=== PATIENT | male | born 1990 | race Caucasian/White ===

== ENCOUNTER → 2016-12-18 | Outpatient (CLI) | payer OTHER ==
--- NOTE | 2016-12-20 07:28 | XR ---
EXAMINATION TYPE: XR chest 2V DATE OF EXAM: 12/18/2016 11:57 AM COMPARISON: Thoracic spine x-ray from 2015 HISTORY: Burning right-sided chest pain. TECHNIQUE: Frontal and lateral views of the chest are obtained. FINDINGS: Some elevation and eventration of the anterior aspect right hemidiaphragm is present. There is no focal air space opacity, pleural effusion, or pneumothorax seen. The cardiac silhouette size is within normal limits. Slight underlying levoconvex scoliotic curvature in the upper thoracic spine is redemonstrated. IMPRESSION: No acute cardiopulmonary process.
== END | disposition home or self-care (01) ==
LOC: RADXRYALE 11:44
PROVIDERS: ATTEND Family Medicine
DX: R07.1 Chest pain on breathing (principal)
CPT/HCPCS: 71020

== ENCOUNTER → 2017-03-13 | Outpatient (CLI) | payer OTHER ==
--- NOTE | 2017-03-13 08:04 | US ---
EXAMINATION TYPE: US abdomen complete DATE OF EXAM: 03/13/2017 COMPARISON: NONE CLINICAL HISTORY: R10.9 Abdominal pain. Weight gain, Lupus, Nausea/vomiting. EXAM MEASUREMENTS: Liver Length: 17.0 cm Gallbladder Wall: 0.2 cm CBD: 0.3 cm Spleen: 10.5 cm Right Kidney: 12.5 x 5.9 x 4.9 cm Left Kidney: 12.5 x 5.7 x 5.4 cm Pancreas: wnl, partially obscured by bowel gas. Liver: Large, hyperechoic, with areas of focal sparing near GB Gallbladder: wnl Evidence for sonographic Borja's sign: no CBD: wnl Spleen: wnl, upper limits for size Right Kidney: Small cyst mid/upper pole = 0.8 x 0.8 x 0.7 cm Left Kidney: wnl Upper IVC: wnl Abd Aorta: wnl The visualized liver is heterogeneously hyperechoic. Evaluation for focal masses suboptimal due to th e heterogeneity. The intrahepatic portion of the IVC and visualized abdominal aorta are within huseyin l limits. There is no evidence of cholelithiasis. Common bile duct is unremarkable. The visualized portions of the pancreas are slightly heterogeneous. The spleen is unremarkable. Kidneys are symme tric and free of hydronephrosis. No renal lesions are seen. IMPRESSION: Heterogeneous hyperechoic appearance of liver favors diffuse fatty infiltration.
== END | disposition home or self-care (01) ==
LOC: RADUSWWP 07:01
PROVIDERS: ATTEND Family Medicine
DX: R10.9 Unspecified abdominal pain (principal)
CPT/HCPCS: 76700

== ENCOUNTER → 2019-05-12 | Outpatient (CLI) | payer OTHER ==
--- NOTE | 2019-05-12 10:26 | XR ---
EXAMINATION TYPE: XR wrist complete RT DATE OF EXAM: 05/12/2019 CLINICAL HISTORY: Scaphoid pain for one month TECHNIQUE: Frontal, lateral and oblique images of the right wrist are obtained. Scaphoid view was al so obtained. COMPARISON: None FINDINGS: There is no acute fracture/dislocation evident in the right wrist. The joint spaces in th e right wrist appear within normal limits. The overlying soft tissue appears unremarkable. IMPRESSION: There is no acute fracture or dislocation in the right wrist. MRI could evaluate for oss eous contusion, tendinous injury or ligamentous injury if there is further clinical concern and mazin nued snuffbox pain.
== END | disposition home or self-care (01) ==
LOC: RADXRYALE 09:38
PROVIDERS: ATTEND Family Medicine
DX: M25.531 Pain in right wrist (principal); M65.4 Radial styloid tenosynovitis [de Quervain]

== ENCOUNTER → 2019-11-02 | Outpatient (CLI) | payer OTHER ==
--- NOTE | 2019-11-02 09:55 | MR ---
EXAMINATION TYPE: MR cervical spine wo con DATE OF EXAM: 11/02/2019 COMPARISON: Prior exam cervical spine MR 07/23/2016 HISTORY: Cervical stenosis TECHNIQUE: Multiplanar, multisequence images of the cervical spine were acquired. C2-C3: No evidence for degenerative disc disease. No disc bulge/herniation or protrusion. No Canal stenosis. Uncovertebral joint hypertrophy encroaches somewhat on the right neural foramen similar to prior exam. C3-C4: No evidence for degenerative disc disease. No disc bulge/herniation or protrusion. No Canal stenosis. Uncovertebral joint hypertrophy encroaches somewhat on the right neural foramen similar to prior exam.. C4-C5: Posterior extension endplate disc complex causes mild anterior mass effect on the thecal sac. Bilateral foraminal encroachment is present as on prior exam. C5-C6: No evidence for degenerative disc disease. No disc bulge/herniation or protrusion. No Canal stenosis. Some mild foraminal encroachment due to uncovertebral joint hypertrophy noted.. C6-C7: No evidence for degenerative disc disease. No disc bulge/herniation or protrusion. No Canal stenosis. Foramina are patent bilaterally. C7-T1: No evidence for degenerative disc disease. No disc bulge/herniation or protrusion. No Canal stenosis. Foramina are patent bilaterally. Cervical segments are intact. There is normal alignment. Cervical spinal cord is of normal signal. Craniovertebral junction relationships are within normal limits. Spinal curvature is again noted. L oss of disc height and signal is greatest at C4-5, C5-6 but also present at C3-4, C6-7. There is asso ciated spondylosis as on prior exam. IMPRESSION: Mild degenerative disc disease is similar to prior exam. There is a spinal curvature present.
--- NOTE | 2019-11-02 15:35 | MR ---
EXAMINATION TYPE: MR lumbar spine wo/w con DATE OF EXAM: 11/02/2019 COMPARISON: Prior lumbar MRI 07/23/2016 HISTORY: Low back pain TECHNIQUE: Multiplanar, multisequence images of the lumbar spine were acquired utilizing 11.5 mL intravenous Misha avist gadolinium contrast. L1-L2: Normal disc appearance without desiccation. No herniation, protrusion or disc bulging. No ca nal stenosis is present. Foramina are patent bilaterally. L2-L3: Normal disc appearance without desiccation. No herniation, protrusion or disc bulging. No ca nal stenosis is present. Foramina are patent bilaterally. L3-L4: Posterior disc bulge causes anterior mass effect on the thecal sac. Increased signal at the po sterior aspect of the disc consistent with annular tear. Circumferential extension endplate disc comp genna encroaches somewhat on the neural foramina greater on the right. L4-L5: Listhesis contributes to cause bilateral foraminal encroachment greater on the left. There are laminectomy changes present. L5-S1: Normal disc appearance without desiccation. No herniation, protrusion or disc bulging. No ca nal stenosis is present. Foramina are patent bilaterally. Lumbar segments are stable. No paraspinal masses are identified. Conus medullaris has a normal appe arance. Posterior fusion is present at L4-5 with persistent listhesis L4-5 grade 1. Prior tract prese nt bilaterally at transitional segment previously denoted as S1, S1 previously placed screws again no seymour and have been removed. 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 Loss of disc height signal ag ain noted L3-4, L4-5 and L5-S1, there is endplate marrow signal changes present L5-S1. T2 bright foci within the kidneys likely represent cysts. Dorsal enhancing soft tissue at the L4 level is again see n and is likely postoperative granulation tissue No additional abnormal enhancement following contras t administration. IMPRESSION: Postop changes as described are similar to prior exam. Transitional lumbosacral spine segment, correl ate with plain film prior to any intervention.
== END | disposition home or self-care (01) ==
LOC: RADMRIMAIN 08:17
PROVIDERS: ATTEND Family Medicine
DX: M51.36 Other intervertebral disc degeneration, lumbar region (principal)
CPT/HCPCS: 72141; 72158; A9585

== ENCOUNTER → 2019-11-06 | Outpatient (CLI) | payer OTHER ==
--- NOTE | 2019-11-06 09:22 | MR ---
EXAMINATION TYPE: MR thoracic spine wo con DATE OF EXAM: 11/06/2019 COMPARISON: None HISTORY: Back pain CONTRAST: Performed utilizing 0 mL intravenous Gadavist gadolinium contrast. TECHNIQUE: Multiplanar, multiecho imaging on a 3.0 Sridevi magnet is performed through the thoracic spi ne. Spinal cord maintains normal signal through its visualized course. Vertebral body alignment is normal. Some mild scoliosis in the upper thoracic lower cervical spine ma y be present, this could be positional. Vertebral body heights are preserved. Disc heights are preserved. Disc hydration levels are preserved. No disc herniations are evident. No spinal canal stenosis is evident. No syrinx is identified. IMPRESSIONS: 1. Mild upper thoracic scoliosis which could be positional. 2. MRI Thoracic spine is otherwise unremarkable.
== END | disposition home or self-care (01) ==
LOC: RADMRIMAIN 08:26
PROVIDERS: ATTEND Family Medicine
DX: M51.34 Other intervertebral disc degeneration, thoracic region (principal)
CPT/HCPCS: 72146

== ENCOUNTER → 2019-11-17 | Outpatient (CLI) | payer OTHER ==
[2019-11-17 11:49] VITALS: BP 122/86; PULSE 88; RESP 14
--- NOTE | 2019-11-17 12:34 | P.CONS ---
History of Present Illness - Reason for Consult Consult date: 11/17/19 - Chief Complaint Neck and lower back pain - History of Present Illness This is a 29-year-old gentleman with chronic history of neck and lower back pain. The patient had 2 surgeries on the lumbar spine with lumbar fusion one in 2004 and the second one in 2012. He describes his pain as sharp and shooting it is mostly in his lower back and goes to the right buttock area but does not go to the lower extremities. He denies any numbness or tingling in the lower extremities however he does feel numbness and tingling in both arms with neck pain which radiates down to the shoulders only. The patient has been taking Percocet and morphine for his pain but this has not been controlling his pain well. He denies any bowel or bladder dysfunction or any weight loss recently. He also denies any fever or chills recently. The pain does wake the patient up at night. The patient is unemployed at this point and he we'll apply for disability because of his chronic pain problem. Past Medical History Past Medical History: Hypertension Additional Past Medical History / Comment(s): chronic back and neck pain, hx of back fx at age 11 or 12, states being tested for lupus, hx of low testosterone, History of Any Multi-Drug Resistant Organisms: None Reported Past Surgical History: Back Surgery Additional Past Surgical History / Comment(s): fusion 2004 and 2012, rods and screws, previous epidurals and pain clinic procedures Past Anesthesia/Blood Transfusion Reactions: No Reported Reaction Smoking Status: Never smoker - Past Family History Mother Family Medical History: No Reported History Medications and Allergies Home Medications Medication Instructions Recorded Confirmed Type Atenolol/Chlorthalidone 1 each PO DAILY 11/12/19 11/12/19 History [Atenolol-Chlorthalidone 100-25] Baclofen [Lioresal] 20 mg PO TID 11/12/19 11/12/19 History DULoxetine HCL [Cymbalta] 60 mg PO DAILY 11/12/19 11/12/19 History Ergocalciferol [Vitamin D2 50,000 unit PO Q30D 11/12/19 11/12/19 History (DRISDOL)] Gabapentin [Neurontin] 800 mg PO QID 11/12/19 11/17/19 History Morphine Sulfate [Morphine Sulfate 30 mg PO Q12H 11/12/19 11/17/19 History ER] Testosterone 200 mg INJ FR 11/12/19 History oxyCODONE-APAP 10-325MG [Percocet 1 tab PO TID 11/12/19 11/17/19 History 10-325 mg] Allergies Allergy/AdvReac Type Severity Reaction Status Date / Time No Known Allergies Allergy Verified 11/12/19 15:06 Physical Exam Vitals: Vital Signs Pulse Resp BP 11/17/19 11:47 88 14 122/86 - Constitutional General appearance: average body habitus - EENT Eyes: PERRLA - Respiratory Respiratory: bilateral: CTA - Cardiovascular Rhythm: regular - Neurologic Neuro exam of the upper extremities showed normal and symmetrical deep tendon reflexes and normal and symmetrical muscle strength. Neuro exam of the lower extremities showed normal and symmetrical muscle strength, decreased knee reflexes bilaterally, absent ankle reflexes bilaterally. Straight leg raising test negative bilaterally. Neurologic: CNII-XII intact - Musculoskeletal Positive tenderness in the lumbar paravertebral musculature bilaterally. Mild tenderness around the sacroiliac joints bilaterally. Decreased range of motion of the lumbar spine. Normal but painful range of motion of the cervical spine. Postoperative tenderness in the cervical paravertebral musculature and in the trapezius muscles bilaterally. Results Results: Lumbar spine MRI showed annular tear and disc bulging at the L3-L4 level due to associated with posterior fusion at the L4 5 with persistent listhesis at L4 5 level and grade 1 and a transitional segment at L5-S1 level. The cervical spine MRI showed mild degenerative disc disease with loss of disc height especially at Assessment and Plan Plan: This is a 29-year-old gentleman with history of chronic neck and lower back pain with the following diagnoses: Lumbar postlaminectomy pain syndrome Lumbar DDD Lumbar spondylosis without myelopathy Cervical DDD Cervical spondylosis without myelopathy We'll plan to do a diagnostic lumbar medial branch block above the fusion level. We will proceed with RFA in the future of this block helps the patient's pain. The patient had cervical epidural steroid injection previously which gave him 3 months of pain relief and if his neck pain continues to be a problem we can plan on doing cervical epidural steroid injection in the future. The patient denies taking any anticoagulants. And he is not diabetic. I thank you for the referral
== END | disposition home or self-care (01) ==
LOC: PNWHC3 11:08
PROVIDERS: ATTEND Anesthesiology
DX: G89.29 Other chronic pain (principal); M50.30 Other cervical disc degeneration, unspecified cervical region; M47.812 Spondylosis without myelopathy or radiculopathy, cervical region; M47.816 Spondylosis without myelopathy or radiculopathy, lumbar region; M96.1 Postlaminectomy syndrome, not elsewhere classified; Z79.891 Long term (current) use of opiate analgesic; Z79.899 Other long term (current) drug therapy
CPT/HCPCS: 99211

== ENCOUNTER 2019-12-17 09:16 | Day surgery (SDC) | payer OTHER ==
[2019-12-16 12:31] VITALS: BMI 30.4
[~2019-12-17 09:16] MED LIST: LACTATED RINGERS 1,000 ML IV SCH
[2019-12-17 09:39] VITALS: RESP 16; TEMP 98.8
[2019-12-17] MEDS ORDERED: LIDOCAINE 1% (10MG/ML) FOR IV START INTRADERMA ONE (09:44)
[2019-12-17] MEDS ORDERED: methylPREDNISolone ACETATE 40 MG/ML 1 ML VIAL ONE (09:58)
[2019-12-17] MEDS ORDERED: fentaNYL (PF) 50 MCG/ML 2 ML AMP ONE (09:58)
[2019-12-17] MEDS ORDERED: ROPIVACAINE 5MG/ML 20ML VIAL ONE (09:58)
[2019-12-17] MEDS ORDERED: MIDAZOLAM 2 MG/2 ML VIAL ONE (09:58)
--- NOTE | 2019-12-17 10:23 | P.PCN ---
Date of Procedure: 12/17/19 Procedure(s) Performed: PREOPERATIVE DIAGNOSIS : 1- Lumbar spondylosis with Facet Arthropathy without myelopathy . POSTOPERATIVE DIAGNOSIS: 1- Lumbar spondylosis with Facet Arthropathy without myelopathy . PROCEDURE: Diagnostic bilateral L1 , L2 ,L3 , medial branch block under fluoroscopy guidance(fluoroscopy images available in the radiology Department ) ( To target the facet joint between L2-3 , and L3-4 ) ANESTHESIA:, moderate sedation with intravenous Versed 2 mg and Fentanyl 50 mcg. EBL: Minimal COMPLICATION: None. IV FLUIDS: 100 mL of normal saline. PROCEDURE INDICATION: Chronic low back pain secondary to Facet arthropathy unresponsive to conservative treatment. PROCEDURE DESCRIPTION: the patient was seen and identified in the preop holding area , risks and benefits and possible complications of the procedure and alternative were discussed with the patient, and the patient agreed to proceed with the procedure and signed the consent IV was started and vital signs monitored during the procedure and fluoroscopy was used to maximize the benefit and accuracy of the needle placement, and sedation was given to decrease patient anxiety, patient was taken to the procedure room and placed in prone position vital signs monitored in the back prepped with chlorhexidine X3 then under strict sterile technique using a right oblique fluoroscopy ,the junction of the transverse process and the superior articulating process of the right L1 , L2 , L3 , vertebra which corresponding to the fluoroscopy image of the eye of the Emmanuel dog on the block side for the medial branches and subsequently , after local infiltration of skin and subcu tissuies with Ropivacaine 0.5 % , one mL at each level ,then 22-gauge Quincke-type needles , 3 needle was used , each one of them placed at the junction of the base of the transverse process and the superior articular process at the appropriate level, and the needle was advanced until the periosteum contacted, needle placement confirmed with AP oblique and lateral view and after appropriate needle placement confirmed, and after negative aspiration for heme and CSF and there was no paresthesia 1-1/2 mL of Ropivacaine 0.5% mixed with 20 mg Depo-Medrol , then half mL injected at each level after negative aspiration the needle subsequently removed and the same procedure repeated for the left side at left side at L1 ,L2 ,L3 , levels. At the end of the procedure and the needles removed and a bandage applied after the skin was cleaned the cleaning solution patient taken to recovery room in stable condition and monitors in the recovery room for 20-30 minutes and discharged home in stable condition after discharge criteria met and patient will follow up with the pain clinic in 2-4 weeks
[2019-12-17] MEDS ORDERED: IV FLUID CONTINUATION 700 ML IV ONE (10:25)
[2019-12-17 10:46] VITALS: BP 111/57; PULSE 74
--- NOTE | 2019-12-17 10:47 | FL ---
EXAMINATION TYPE: FL guided pain mgmt statistic DATE OF EXAM: 12/17/2019 CLINICAL HISTORY: Low back pain. TECHNIQUE: Fluoroscopy. COMPARISON: None. FINDINGS: Fluoroscopic guidance was provided during pain relief procedure performed by Dr. Ramos . A total of 10 seconds of fluoroscopic time was utilized during the procedure and 6 spot images are acquired. Images acquired shows needle localization at multiple levels of the lumbar spine. IMPRESSION: As Above.
== END 2019-12-17 11:02 | disposition home or self-care (01) ==
LOC: ORPAIN 09:16
PROVIDERS: ATTEND Specialist
DX: G89.29 Other chronic pain (principal); M47.816 Spondylosis without myelopathy or radiculopathy, lumbar region
CPT/HCPCS: 64493; 64494; J2250; J1030; J3010; J2795; 99152

== ENCOUNTER → 2023-06-06 | Outpatient (CLI) | payer OTHER ==
--- NOTE | 2023-06-06 16:29 | XR ---
EXAMINATION TYPE: XR thoracic spine complete DATE OF EXAM: 06/06/2023 3:38 PM INDICATION: Patient age:Male; 33 years old; Reason for study: M546 THOR PAIN; [facility]. COMPARISON: Thoracic spine radiograph 01/31/2016, MRI thoracic spine 11/06/2019 TECHNIQUE: 3 views of the thoracic spine in frontal, lateral, Schwimmer's projections. FINDINGS: Mild central compression deformity involving the superior endplate of the likely T8 vertebral body. T here is approximately 5% height loss. No obvious retropulsion. There is no evidence of disk space vlad rowing. There is normal alignment of the thoracic vertebral bodies. IMPRESSION: Age-indeterminate mild central compression deformity of the superior endplate of likely T8 vertebral body. Correlate with point tenderness.
== END | disposition home or self-care (01) ==
LOC: RADXRYALE 15:13
PROVIDERS: ATTEND Physician Assistant
DX: M54.6 Pain in thoracic spine (principal)
CPT/HCPCS: 72072

== ENCOUNTER → 2023-08-12 | Outpatient (CLI) | payer OTHER ==
--- NOTE | 2023-08-12 08:12 | MR ---
EXAMINATION TYPE: MR corbin wo con DATE OF EXAM: 08/12/2023 COMPARISON: 11/02/2019 HISTORY: Neck/Mid back pain, headaches, numbness in rony arms/hands CONTRAST: TECHNIQUE: Multiplanar multiecho imaging on a 3.0 Sridevi magnet is performed through the cervical spin e. FINDINGS: The craniovertebral junction is normal. Vertebral body alignment is normal. C7-T1: No focal disc herniation or significant disc bulge is evident. No spinal canal stenosis or n eural foraminal stenosis is present. C6-7: No focal disc herniation or significant disc bulge is evident. No spinal canal stenosis or celestino ral foraminal stenosis is present. C5-6: Mild subligamentous disc extension beyond the endplate of C5 may be present previously is minim al anterior thecal sac compression. No AP spinal canal stenosis present. No cord contact is evident.. C4-5: There is mild disc bulging which appears to have some subligamentous disc extension is in the s agittal plane. This is mild anterior thecal sac compression. No cord contact or spinal canal stenosis present. Neural foramen are patent.. C3-4: No focal disc herniation or significant disc bulge is evident. No spinal canal stenosis or celestino ral foraminal stenosis is present. C2-3: No focal disc herniation or significant disc bulge is evident. No spinal canal stenosis or celestino ral foraminal stenosis is present. IMPRESSION: 1. Minimal subligamentous disc herniation C4-5 C5-6 without spinal canal stenosis or cord contact. Fi ndings appear minimally progressive from the comparison study. EXAMINATION TYPE: MR corbin wo con DATE OF EXAM: 08/12/2023 COMPARISON: 11/06/2019 HISTORY: Neck/Mid back pain, headaches, numbness in rony arms/hands CONTRAST: Performed utilizing 0 mL intravenous Gadavist gadolinium contrast. TECHNIQUE: Multiplanar, multiecho imaging on a 3.0 Sridevi magnet is performed through the thoracic spi ne. Spinal cord maintains normal signal through its visualized course. Vertebral body alignment is normal. Vertebral body heights are preserved. Disc heights are preserved. Disc hydration levels are preserved. No spinal canal stenosis is evident. IMPRESSION: 1. No significant acute changes MRI thoracic spine. Appearance is unchanged from comparison.
== END | disposition home or self-care (01) ==
LOC: RADMRIMAIN 06:44
PROVIDERS: ATTEND Neurological Surgery
DX: M47.14 Other spondylosis with myelopathy, thoracic region (principal); G95.89 Other specified diseases of spinal cord; M50.021 Cervical disc disorder at C4-C5 level with myelopathy
CPT/HCPCS: 72141; 72146